=== PATIENT | female | born 1940 | race Hispanic/Latino ===

== ENCOUNTER → 2020-08-15 | Outpatient (CLI) | payer OTHER, MEDICARE | END | disposition home or self-care (01) | LOC: RAH 12:39 | PROVIDERS: ATTEND Internal Medicine | DX: M47.812 Spondylosis without myelopathy or radiculopathy, cervical region (principal); M48.02 Spinal stenosis, cervical region | CPT/HCPCS: 72141 ==

== ENCOUNTER → 2024-12-27 | Outpatient (CLI) | payer OTHER, MEDICARE ==
--- NOTE | 2024-12-27 18:26 | HMCSR ---
APPROVED REPORT EXAM: Two-dimensional and M-mode echocardiogram with Doppler and color Doppler. INDICATION ICD: R60.0 Localized edema 2D Dimensions RVDd 3.6 cm LVEF(%) 57.8 (>50%) LA ESV INDEX (BP) 23.63 mL/m2 IVSd 0.9 (0.7-1.1cm) FS(%) 30 % LVDd 4.7 (3.8-5.6cm) LVOT diam 2.0 (1.8-2.4cm) PWd 0.6 (0.7-1.1cm) IVC diam 2.0 cm IVSs 1.0 cm LVDs 3.3 (2.5-4.0cm) PWs 1.0 cm M-Mode Dimensions EPSS 0.5 cm LA (MM) 3.3 (1.6-4.0cm) Ao Root(MM) 2.7 (2.0-3.7cm) Aortic Valve AoV Vmax 1.4 m/s Ao Peak GR 8.4 mmHg LVOT Vmax 0.9 m/s AoV VTI 0.3 m Ao Mean GR 4.9 mmHg LVOT VTI 0.19 m GUDELIA (VMAX) 1.94 cm2 GUDELIA (VTI) 2.2 cm2 Mitral Valve MV E Vmax 69.3 cm/s DECEL Time 162 ms MV A Vmax 94.8 cm/s P 1/2 T 71 ms E/A ratio 0.7 MVA (PHT) 3.1 cm2 TDI E/E' Medial 13.4 E/E' Lateral 11.9 Medial E' Peak V 5.18 cm/s Lateral E' Peak V 5.83 cm/s Pulmonary Valve PV Vmax 0.8 m/s PV VTI 0.16 m PV Mean GR 1.3 mmHg PV Peak GR 2.3 mmHg Tricuspid Valve RAP (EST) 8 mmHg RVSP 8.0 mmHg Left Ventricle The left ventricle is normal size. There is normal LV segmental wall motion. There is normal left ventricular wall thickness. LVEF is 50-55%. Stage I diastolic dysfunction. Right Ventricle The right ventricle is normal size. The right ventricular systolic function is normal. Atria The left atrium size is normal. The right atrium size is normal. Aortic Valve Aortic valve is trileaflet, left coronary cusp leaflet has limited exrcursion. Trace of aortic regurgitation is present. There is no aortic valvular stenosis. Mitral Valve The mitral valve is normal in structure. Mitral regurgitation is mild. There is no mitral valve stenosis. Tricuspid Valve The tricuspid valve is normal in structure. There is no tricuspid valve regurgitation noted. Pulmonic Valve The pulmonary valve is normal in structure. There is trace of pulmonic valvular regurgitation. Great Vessels The aortic root is normal in size. The IVC is normal in size and collapses <50% with inspiration. Pericardium There is no pericardial effusion. Other Information Quality : Adequate Conclusion LVEF is 50-55%. Stage I diastolic dysfunction. Aortic valve is trileaflet, left coronary cusp leaflet has limited exrcursion. Trace of aortic regurgitation is present. There is no aortic valvular stenosis. Mitral regurgitation is mild.
== END | disposition home or self-care (01) ==
LOC: RAH 13:01
PROVIDERS: ATTEND Internal Medicine
DX: I34.0 Nonrheumatic mitral (valve) insufficiency (principal); R60.0 Localized edema
CPT/HCPCS: 93306

== ENCOUNTER 2025-01-11 11:07 | Emergency (ER) | payer OTHER, MEDICARE ==
[~2025-01-11] VITALS: Ht 165.1 cm; Wt 55.8 kg
--- NOTE | 2025-01-11 11:17 | ERN ---
ED Note History of Present Illness Stated Complaint: BACK PAIN Chief Complaint: Back Pain-No Injury Time Seen by MD: 11:11 Dictation: PATIENT IS AN 84-YEAR-OLD FEMALE HERE WITH HER WITH A COPY OF THE CAT SCAN OF HER LUMBAR BACK THAT WAS PERFORMED BY /BRUSH HAND. SHE HAS A LONG HISTORY OF CHRONIC LOW BACK PAIN WITHOUT RADICULOPATHY OR SCIATICA. THERE WAS NO CHANGE IN BOWEL OR BLADDER FUNCTION. SHE HAS NO SADDLE PARESTHESIA. 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 SHE STATES SHE ONLY TOOK GABAPENTIN TODAY PRIOR TO ARRIVAL HOWEVER SHE HAS MORE MEDICATIONS AT HOME THAT SHE DID NOT TAKE PRIOR TO COMING TO THE HOSPITAL. Allergies: Coded Allergies: No Known Drug Allergies (Unverified Allergy, Unknown, 01/11/25) Past Medical History History: Not Applicable RN Note Reviewed/Agreed w/PFSH: Yes Review of System Dictation CONSTITUTIONAL: NEGATIVE EXCEPT FOR HPI HEAD/FACE: NEGATIVE EXCEPT FOR HPI EENT: NEGATIVE EXCEPT FOR HPI RESPIRATORY: NEGATIVE EXCEPT FOR HPI GASTROINTESTINAL/ABDOMINAL: NEGATIVE EXCEPT FOR HPI GENITOURINARY: NEGATIVE EXCEPT FOR HPI MUSCULOSKELETAL: NEGATIVE EXCEPT FOR HPI CHRONIC LOW BACK PAIN INTEGUMENTARY: NEGATIVE EXCEPT FOR HPI NEUROLOGICAL/PSYCH: NEGATIVE EXCEPT FOR HPI HEMATOLOGIC/LYMPHATIC: NEGATIVE EXCEPT FOR HPI ALL SYSTEMS NEGATIVE, EXCEPT NOTED ABOVE. 13 POINT REVIEW OF SYSTEMS ASSESSED AND ALL NEGATIVE EXCEPT FOR ABOVE. Initial Vital Sign VS Vital Signs Date Time Temp Pulse Resp B/P (MAP) Pulse Ox O2 Delivery O2 Flow Rate FiO2 01/11/25 11:09 98.8 99 18 137/73 98 Room Air 0 01/11/25 11:32 21 Physical Exam Dictation VITAL SIGNS REVIEWED GENERAL APPEARANCE: ALERT, ORIENTED X 3, MODERATE ACUTE DISTRESS, WELL DEVELOPED, NOURISHED. HEAD AND FACE: NON-TRAUMATIC. EYES: PERRL, PINK CONJUNCTIVAS, EYELID NO TRAUMA, ANTERIOR CHAMBER WITH ARCUS SENILIS. EARS: PINNAS INTACT AND NO SIGNS OF TRAUMA OR ERYTHEMA EAR CANALS CLEAR AND NO DISCHARGE TM NO ERYTHEMA NOSE: NO DISCHARGE, NO BLEEDING. OROPHARYNX: MOUTH NORMAL, TONGUE PINK, PHARYNX CLEAR,NO ERYTHEMA, TONSILS NO EXUDATES, NO ABSCESSES NOTED, MUCOUS MEMBRANE MOIST NECK: SUPPLE, NON-TENDER, NO THYROMEGALY, NO MASSES, NO JVD, NO BRUITS BREAST:DEFERRED CHEST:NO TENDERNESS, NO CREPITUS, NO PARADOXICAL MOVEMENT, NO RETRACTIONS LUNGS:CLEAR, WELL-VENTILATED, SYMMETRIC, NO RALES, NO WHEEZING, NO RHONCHI, NO STRIDOR, GOOD BREATH SOUNDS BILATERALLY HEART: REGULAR RATE, REGULAR RHYTHM, NO MURMUR, NO GALLOPS VASCULAR: NO PERIPHERAL EDEMA, ABDOMEN: SOFT, POSITIVE BOWEL SOUNDS, NONDISTENDED, NO GUARDING, NONTENDER, NO REBOUND, NO MASSES NO HEPATOMEGALY, NO SPLENOMEGALY, NO RICO'S SIGN, NO HERNIAS. RECTAL: DIFFUSE LUMBOSACRAL TENDERNESS, FULL RANGE OF MOTION, EXTREMITIES: NONTENDER, FULL RANGE OF MOTION SKIN: COLOR PINK, DRY, NO TURGOR, NO RASH, NO LACERATIONS, NO ABRASIONS, NO CONTUSIONS. LYMPHATIC: DEFERRED Results (Laboratory/Radiology) Labs Reviewed?: Yes ED Course ED Course Orders Procedure Category Date Status Time Dexamethasone 4mg/Ml PHA 01/11/25 Complete 1ml Vial (Dexametha 11:30 Acetaminophen With PHA 01/11/25 Complete Codeine (Tylenol-Code 11:30 Cyclobenzaprine Hcl PHA 01/11/25 Complete (Cyclobenzaprine Hcl 11:30 Current Medications Medications (Trade) Dose Ordered Sig/Jorge Alberto Route PRN Reason Start Time Stop Time Status Last Admin Dose Admin Acetaminophen/ Codeine Phosphate (TYLenol-coDEINE TAB) 2 tab ONCE ONCE PO 01/11/25 11:30 01/11/25 11:31 DC 01/11/25 11:45 Cyclobenzaprine HCl (Cyclobenzaprine HCl) 10 mg ONCE ONCE PO 01/11/25 11:30 01/11/25 11:31 DC 01/11/25 11:45 Dexamethasone Sodium Phosphate (dexaMETHasone 4MG/ML 1ML VIAL) 8 mg ONCE ONCE IM 01/11/25 11:30 01/11/25 11:31 DC 01/11/25 11:46 Vital Signs Date Time Temp Pulse Resp B/P (MAP) Pulse Ox O2 Delivery O2 Flow Rate FiO2 01/11/25 11:32 98.8 92 18 132/70 98 Room Air* 0 21 01/11/25 11:09 98.8 99 18 137/73 98 Room Air 0 Medical Decision Making [facility] 1240/MEDICAL DECISION-MAKING BASED ON EMPIRIC TREATMENT FOR CHRONIC LOW BACK PAIN. PATIENT HAS STATED SHE HAS RELIEF WITH THE TREATMENT HERE. DISCHARGED HOME WITH TYLENOL AND CODEINE TOLD TO FOLLOW UP WITH HER PAIN MANAGEMENT PHYSICIAN, NEUROVASCULAR CMS INTACT TO LOWER EXTREMITIES NO BOWEL OR BLADDER CHANGES. DX & DISP Disposition: Discharge Departure Impression: Primary Impression: Acute exacerbation of chronic low back pain Additional Impression: DJD (degenerative joint disease), lumbosacral Condition: Stable Scripts Methylprednisolone (Medrol) 4 Mg Tab.ds.pk 1 TAB PO AD for 6 Days, #21 TAB 0 Refills 6 on day 1 then reduce by one tablet daily until gone Prov: ISIDRO SOSAP 01/11/25 Acetaminophen with Codeine (Acetaminophen-Cod #3 Tablet) 300 Mg-30 Mg Tablet 1 TAB PO Q4H PRN for MODERATE TO SEVERE PAIN, #12 TAB 0 Refills Prov: ISIDRO SOSA 01/11/25 Additional Instructions: Follow-up with primary care provider in 1 to 2 days. Take medications as directed here in the emergency room. Okay to continue home medications unless otherwise discussed during your visit in the emergency room today. Return to your nearest emergency room if symptoms worsen or if there is no improvement. Call 911 if you need immediate assistance. Take Tylenol or Motrin [id number] as needed and if no contraindications are present. Increase oral hydration. A wound culture or urine culture was ordered here in [facility] please follow-up with primary care provider and advise them to get repeat ports from our facility. If you had any Lukas wrap/splints that were applied here, please do not remove them until you see your primary care or specialty. Take Tylenol with codeine as directed for severe pain. Follow up with the your rail car painter/sandblaster in the next 1-2 days Referrals: LANCE CRUZ MD (PCP) Time of Disposition: 12:39 I have reviewed the case, and I agree with, Diagnosis and Plan ISIDRO SOSA Jan 11, 2025 11:17
[2025-01-11] MEDS: CYCLOBENZAPRINE HCL 10 MG TABLET PO ONE (11:45)
[2025-01-11 13:01] VITALS: BP 128/74; PULSE 88; RESP 18; TEMP 98.8; O2SAT 98
== END 2025-01-11 13:01 | disposition home or self-care (01) ==
LOC: EDH 11:07
DX: M54.50 Low back pain, unspecified (principal); G89.29 Other chronic pain; M47.817 Spondylosis without myelopathy or radiculopathy, lumbosacral region
CPT/HCPCS: 99283; 96372; J1100